=== PATIENT | male | born 1955 | race Caucasian/White ===

== ENCOUNTER 2018-07-19 11:34 | Emergency (ER) | payer OTHER, SELFPAY ==
[2018-07-19 11:49] VITALS: BP 141/87; PULSE 70; RESP 13; TEMP 36.5; O2SAT 97
--- NOTE | 2018-07-19 11:51 | DI.RAD.S_ITS ---
PROCEDURE: XR CHEST 1V INDICATIONS: chest pain TECHNIQUE: One view of the chest was acquired. COMPARISON: [facility], CR, XR CHEST 2VW, 04/24/2016, 11:02. [facility], CR, CHEST 1 VIEW, 02/06/2016, 13:40. FINDINGS: Surgical changes and devices: None. Lungs and pleura: No pleural effusions or pneumothorax. Nodular opacities are present within the bases bilaterally not well-seen on prior exams. Mediastinum: Mediastinal contours appear normal. Heart size is normal. Bones and chest wall: No suspicious bony lesions. Overlying soft tissues appear unremarkable. IMPRESSION: No acute pulmonary process. Bibasilar nodular opacities as above. These are suspected to represent nipple shadows. Recommend followup imaging with nipple markers for further definitive evaluation. Dictated by: Cynthia Clark M.D. on 07/19/2018 at 11:27 Approved by: Cynthia Clark M.D. on 07/19/2018 at 11:28
--- NOTE | 2018-07-19 11:58 | ED_ITS ---
HPI - Chest Pain General Chief Complaint: Chest Pain Stated Complaint: CHEST PAIN PAST COUPLE OF WEEKS Time Seen by Provider: 07/19/18 11:50 Source: patient Mode of arrival: ambulatory Limitations: no limitations History of Present Illness HPI narrative: Patient is a 63-year-old male who presents with chest pain. It has been a dull ache ongoing for a number week it comes and goes irregular times. Last night he felt it when he woke up unsure if it woke him or if he noticed it once he was awake. It does not radiate it lasts for about 10 min to an hour. He denies shortness of breath diaphoresis nausea. Brother had an [place] in his 40s but was overweight and a poorly. MD complaint: chest pain Related Data Home Medications Medication Instructions Recorded Confirmed No Known Home Medications 07/19/18 07/19/18 Allergies Allergy/AdvReac Type Severity Reaction Status Date / Time No Known Drug Allergies Allergy Verified 07/19/18 11:58 Review of Systems Review of Systems GENERAL: Denies chills, fatigue, malaise, fever, sweats, travel HEENT: Denies sinus pain, ear pain, sore throat, difficulty swallowing, neck pain RESPIRATORY: Denies dyspnea, cough, wheezing, hemoptysis, sputum. CARDIOVASCULAR: See HPI GASTROINTESTINAL: Denies nausea, vomiting, abdominal pain, diarrhea, constipation, melena. : Denies dysuria, frequency, incontinence, hematuria, urinary retention, flank pain. MUSCULOSKELETAL: Denies weakness, joint pain, or bony pain SKIN: No rash, no erythema, no pruritus NEUROLOGIC: Denies weakness, dizziness, headache, numbness, change in speech, confusion PSYCHIATRIC: No concerning psychosocial issues. 12 point review of systems is negative except for those stated above and HPI [facility] Medical History High cholesterol (Acute) Exam Initial Vital Signs Initial Vital Signs: Vital Signs Temperature 97.7 F 07/19/18 11:49 Pulse Rate 70 07/19/18 11:49 Respiratory Rate 13 07/19/18 11:49 Blood Pressure 141/87 H 07/19/18 11:49 Pulse Oximetry 97 07/19/18 11:49 GENERAL: Well-appearing, well-nourished and in no acute distress. HEENT: Head atraumatic,EOMI, pupils reactive, face symmetric, CARDIOVASCULAR: Regular rate and rhythm without murmurs, rubs or gallops. RESPIRATORY: Breath sounds equal bilaterally, no wheezes rales or rhonchi. ABDOMEN: Soft, nontender. Normoactive bowel sounds all 4 quadrants. No guarding or rebound. EXTREMITIES: Normal range of motion, no clubbing or edema. Neurovascularly intact NEUROLOGICAL: Alert and oriented x4.Normal gait and speech. Cranial nerves II through XII grossly intact. SKIN: Warm, dry, no laceration, no petechiae, no rashes or lesions. Scores HEART Score Heart Score history: Moderately Suspicious Heart Score EKG: Normal Heart Score Age: 45-64 years old Heart Score risk factors: 1-2 risk factors Heart Score troponin: < or = to normal limit Heart Score Total: 3 Course Orders Ordered: ED Orders 07/19/18 11:51 XR chest 1V Stat EKG-12 Lead Stat 07/19/18 11:56 Complete Blood Count AUTO DIFF Stat Comprehensive Metabolic Panel Stat Lipase Stat Partial Thromboplastin Time Stat Prothrombin Time INR Stat Troponin & CK Cardiac Panel Stat Discontinued Medications Aspirin (Aspirin Chew) 324 mg PO NOW ONE Stop: 07/19/18 11:52 Last Admin: 07/19/18 11:59 Dose: 324 mg Vital Signs - 8 hr 07/19/18 11:49 07/19/18 12:01 07/19/18 12:26 Temperature 97.7 F Pulse Rate 70 64 55 L Respiratory Rate 13 14 Blood Pressure 141/87 H Blood Pressure [Right Arm] 138/79 136/79 Pulse Oximetry 97 98 97 07/19/18 13:07 07/19/18 13:57 Temperature Pulse Rate 69 55 L Respiratory Rate 14 Blood Pressure Blood Pressure [Right Arm] 165/92 H 120/70 Pulse Oximetry 100 98 MDM - Chest Pain Lab Data Attestation: I reviewed the patient's lab results. Result diagrams: 07/19/18 11:56 07/19/18 11:56 Lab Results 07/19/18 07/19/18 07/19/18 Range/Units 11:56 11:56 11:56 WBC 4.6 (4.5-11.0) X10^3/uL RBC 5.06 (4.5-5.9) X10^6/uL Hgb 16.1 (13.5-17.5) g/dL Hct 45.9 (41-53) % MCV 90.8 (80-100) fL MCH 31.8 (26-34) PG MCHC 35.1 (30-36) % RDW 13.6 (11.6-14.8) % Plt Count 211 (150-400) X10^3/uL Neut % (Auto) 61.4 (50-75) % Lymph % (Auto) 22.3 L (25-40) % [place] % (Auto) 11.4 (3-14) % Eos % (Auto) 4.0 (2-4) % Baso % (Auto) 0.9 (0-2) % Neut # (Auto) 2800 L (4278-9240) /uL PT 10.9 (10.1-12.7) SECONDS INR 1.0 (0.9-1.3) APTT 36 (26.4-36.2) SECONDS Sodium 142 (137-145) mmol/L Potassium 4.4 (3.4-5.1) mmol/L Chloride 107 (98-107) mmol/L Carbon Dioxide 24 (22-32) mmol/L BUN 15 (9-20) mg/dL Creatinine 0.90 (0.66-1.25) mg/dL Estimated GFR > 60.0 (>60) mL/min BUN/Creatinine Ratio 16.7 (6-22) Glucose 104 (80-110) mg/dL Calcium 9.4 (8.4-10.2) mg/dL Total Bilirubin 0.7 (0.2-1.3) mg/dL AST 29 (17-59) IU/L ALT 40 (21-72) IU/L Alkaline Phosphatase 69 (38-126) U/L Total Creatine Kinase 79 (55-170) U/L Troponin I < 0.012 (0.01-0.034) ng/mL Total Protein 7.2 (6.3-8.2) g/dL Albumin 4.4 (3.5-5.0) g/dL Globulin 2.8 (1.7-4.1) g/dL Albumin/Globulin Ratio 1.6 (1.0-2.8) Lipase 118 (23-300) U/L Imaging Data Chest x-ray: Radiologist's impression: PROCEDURE: XR CHEST 1V INDICATIONS: chest pain TECHNIQUE: One view of the chest was acquired. COMPARISON[facility], , XR CHEST 2VW, 04/24/2016, 11:02. [facility], CR, CHEST 1 VIEW, 02/06/2016, 13:40. FINDINGS: Surgical changes and devices: None. Lungs and pleura: No pleural effusions or pneumothorax. Nodular opacities are present within the bases bilaterally not well-seen on prior exams. Mediastinum: Mediastinal contours appear normal. Heart size is normal. Bones and chest wall: No suspicious bony lesions. Overlying soft tissues appear unremarkable. IMPRESSION: No acute pulmonary process. Bibasilar nodular opacities as above. These are suspected to represent nipple shadows. Recommend followup imaging with nipple markers for further definitive evaluation. Dictated by: Cynthia Clark M.D. on 07/19/2018 at 11:27 ECG Data Attestation: I personally reviewed and interpreted this ECG as follows: Prior ECG tracings: not available for review Interpretation: Normal sinus rhythm rate [address] changes some T-wave inversion noted in lead [address] elevation MDM Narrative Medical decision making narrative: Patient remains chest pain-free in the ED. Discussed he may require further cardiac evaluation and he should discuss this with his primary. Warning signs and all questions have been addressed. Discharge Plan Departure Patient Disposition: Home Clinical Impression: Atypical chest pain Discharge Date/Time: 07/19/18 13:58 Interventions: ED Discharge Assessment Last Done: 07/19/18 13:58 Instructions: DI for Atypical Chest Pain Activity Restrictions/Additional Instructions: *You have been diagnosed with atypical chest pain *What to do: May require further outpatient cardiac testing discussed this with her primary care provider *Continue to take medications as directed *Follow up with your primary care provider in 2-3 days *Return to ER if you should have worsening or changing chest pain, shortness of breath, heart palpitation or any new, worsening or concerning symptoms Prescriptions: No Action No Known Home Medications RF: 0 Referrals: Glenn Lewis DO [Non-Staff] -
[2018-07-19] MEDS: ASPIRIN 81 MG TAB 324 MG PO (11:59)
[2018-07-19 12:01] VITALS: BP 138/79; PULSE 64; RESP 14; O2SAT 98
[2018-07-19 12:02] LABS: Add Manual Diff / Slide Review NO; Basophils Percent Auto 0.9 % (0-2); Hematocrit 45.9 % (41-53); Hemoglobin 16.1 g/dL (13.5-17.5); Lymphocytes Percent Auto 22.3 % (25-40); Mean Corpuscular HGB Conc 35.1 % (30-36); Mean Corpuscular Hemoglobin 31.8 PG (26-34); Mean Corpuscular Volume 90.8 fL (80-100); Monocytes Percent Auto 11.4 % (3-14); Neutrophils Absolute Auto 2800 /uL (3000-5900); Neutrophils Percent Auto 61.4 % (50-75); Platelet Count 211 X10^3/uL (150-400); Red Blood Cell Count 5.06 X10^6/uL (4.5-5.9); Red Cell Distribution Width 13.6 % (11.6-14.8); White Blood Cell Count 4.6 X10^3/uL (4.5-11.0)
--- NOTE | 2018-07-19 12:04 | PC.NURSE ---
chest pain that woke pt from sleep. On and off x 2 weeks. Describes as feeling as if chest is 'bruised'. Denies n/v/diaphorisis/ sob/ exertional pain. Happens at rest or w/ exertion. Denies reproduction w/ movement or breathing. No travel. [place] / warm and dry. No acute distress. + h/o high cholesterol but does not take medications for it. Currently has no PCP.
[2018-07-19 12:15] LABS: Alanine Aminotransferase 40 IU/L (21-72); Albumin 4.4 g/dL (3.5-5.0); Albumin Globulin Ratio 1.6 (1.0-2.8); Alkaline Phosphatase 69 U/L (38-126); Aspartate Aminotransferase 29 IU/L (17-59); BUN Creatinine Ratio 16.7 (6-22); Bilirubin Total 0.7 mg/dL (0.2-1.3); Blood Urea Nitrogen 15 mg/dL (9-20); Calcium 9.4 mg/dL (8.4-10.2); Carbon Dioxide 24 mmol/L (22-32); Chloride 107 mmol/L (98-107); Creatine Kinase 79 U/L (55-170); Estimated Glomerular Filt Rate > 60.0 mL/min (>60); Globulin 2.8 g/dL (1.7-4.1); Glucose 104 mg/dL (80-110); HEMOLYSIS 25 (0-50); Lipase 118 U/L (23-300); Potassium 4.4 mmol/L (3.4-5.1); Sodium 142 mmol/L (137-145); Total Protein 7.2 g/dL (6.3-8.2)
[2018-07-19 12:16] LABS: Prothrombin Time 10.9 SECONDS (10.1-12.7)
[2018-07-19 12:19] LABS: PTT Partial Thromboplastin Tim 36 SECONDS (26.4-36.2)
[2018-07-19 12:26] VITALS: BP 136/79; PULSE 55; O2SAT 97
[2018-07-19 12:29] LABS: Troponin I < 0.012 ng/mL (0.01-0.034)
[2018-07-19 13:07] VITALS: BP 165/92; PULSE 69; O2SAT 100
[2018-07-19 13:57] VITALS: BP 120/70; PULSE 55; RESP 14; O2SAT 98
== END 2018-07-19 13:58 | disposition home or self-care (01) ==
PROVIDERS: Emergency Provider Emergency Medicine
DX: R07.89 Other chest pain (principal)
CPT/HCPCS: 36591; 71045; 80053; 82550; 82553; 83690; 84484; 85025; 85610; 85730; 93005; 93010; 93041; 99284; 99285

== ENCOUNTER → 2020-05-09 10:36 | Outpatient (CLI) | payer MEDICARE, SELFPAY ==
[2020-05-09 11:06] LABS: Add Manual Diff / Slide Review NO; Basophils Absolute Auto 0 /uL (0-100); Eosinophils Absolute Auto 300 /uL (0-450); Eosinophils Percent Auto 9.3 % (2-4); Hematocrit 45.6 % (41-53); Hemoglobin 15.9 g/dL (13.5-17.5); Lymphocytes Absolute Auto 800 /uL (1100-4500); Lymphocytes Percent Auto 23.2 % (25-40); Mean Corpuscular HGB Conc 34.9 % (30-36); Mean Corpuscular Hemoglobin 32.4 PG (26-34); Mean Corpuscular Volume 92.9 fL (80-100); Monocytes Absolute Auto 300 /uL (0-900); Monocytes Percent Auto 9.2 % (3-14); Neutrophils Absolute Auto 2100 /uL (1500-7000); Neutrophils Percent Auto 57.3 % (50-75); Platelet Count 192 X10^3/uL (150-400); Red Blood Cell Count 4.91 X10^6/uL (4.5-5.9); Red Cell Distribution Width 13.6 % (11.6-14.8); White Blood Cell Count 3.6 X10^3/uL (4.5-11.0)
[2020-05-09 11:19] LABS: Alanine Aminotransferase 17 IU/L (<50); Albumin 4.5 g/dL (3.5-5.0); Albumin Globulin Ratio 1.6 (1.0-2.8); Alkaline Phosphatase 90 U/L (38-126); Aspartate Aminotransferase 21 IU/L (17-59); BUN Creatinine Ratio 17.1 (6-22); Bilirubin Total 0.9 mg/dL (0.2-1.3); Blood Urea Nitrogen 13 mg/dL (9-20); Calcium 9.8 mg/dL (8.4-10.2); Carbon Dioxide 27 mmol/L (22-32); Chloride 103 mmol/L (98-107); Estimated Glomerular Filt Rate > 60.0 mL/min (>60); Globulin 2.8 g/dL (1.7-4.1); Glucose 104 mg/dL (80-110); HEMOLYSIS < 15 (0-50); Potassium 4.5 mmol/L (3.4-5.1); Sodium 137 mmol/L (137-145); Total Protein 7.3 g/dL (6.3-8.2)
== END ==
PROVIDERS: PCP Family Medicine; Referring Provider Internal Medicine; Visit Provider Internal Medicine
DX: C02.9 Malignant neoplasm of tongue, unspecified (principal)
CPT/HCPCS: 36415; 80053; 85025

== ENCOUNTER → 2020-05-14 08:30 | Oncology outpatient (ONC) | payer MEDICARE, OTHER, SELFPAY ==
[2020-05-08 09:52] VITALS: BP 124/61; PULSE 64; RESP 18; TEMP 36.8; O2SAT 98
--- NOTE | 2020-05-08 12:44 | ONC.CONS ---
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 He originally noted some dysphagia in weakness of his tongue in the summer of 2018. He eventually had an MRI of the brain done on February 03, 2020 that showed a mass in the base of the tongue on the left side. On February 11 a biopsy was done that showed a poorly differentiated carcinoma that was P 16 equivocal (50%). A PET scan on February 15 showed multiple bilateral lymph nodes, left greater than right. A primary tumor was apparent at the left base of tongue and was also a 5 mm indeterminate lung nodule. PET scan was otherwise negative. On February 18 he saw Medical Oncology at the [facility] [place] and was counseled about cis-angoon 100 milligrams/meter sq day 1, 22, and 43 of a cycle of radiation therapy, standard chemo radiotherapy. He since has been receiving treatments from a naturopathic oncologist in [place]. He reports getting IV vitamin-C, multiple supplements, mistletoe injections in dietary adjustments. He has since come back to [place] and presents today to establish local medical oncology care. Today he reports a fullness and swelling on the left side of his tongue for the last month or so. He continues to have trouble swallowing but is much better than it was. He had recalls having a barium swallow but he has not had a speech pathology referral or swallowing exercises that he recur he does not think the lymph nodes in his neck of changed appreciably. He is not having any particular problems with pain. He denies any bleeding, localized weakness, fever, chills, nausea, vomiting, shortness of breath. All other systems are negative. Past medical history 1. He has worked in the [employer]. He is accompanied by his who is very supportive. He tries to get out and about but does not go for a lot of walks. He generally eats a good diet. He is not a smoker or drinker. 2. His father had sinus cancer and was a heavy smoker. Family history is otherwise negative 3. 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 He denies high blood pressure, diabetes, rheumatic fever, tuberculosis, heart attacks, strokes, stomach ulcers, pneumonia or any other kind of cancer 5. No known drug allergies 6. He is not currently on any prescription medications 7. He had a colonoscopy in 2016 8. Hyperlipidemia CC: Harshal Guajardo MD Home Medications and Allergies Home Medications Medication Instructions Recorded Confirmed Type No Known Home Medications 07/19/18 05/08/20 History Allergies Allergy/AdvReac Type Severity Reaction Status Date / Time No Known Drug Allergies Allergy Verified 04/26/20 16:20 Medical History - Medical, Surgical, Family History Medical History: Medical History (Last Updated 04/26/20 @ 16:43 by Jaquan Wheeler DO) High cholesterol Primary tongue squamous cell carcinoma - Social History Smoking Status: Former smoker Review of Systems - Patient Self-Reported Symptoms SR ears, nose, mouth, throat issues: Difficulty swallowing, Swollen glands Exam Vital signs: Vital Signs Temp Pulse Resp BP Pulse Ox 05/08/20 09:52 98.2 F 64 18 124/61 98 Intake and Output 05/07/20 05/08/20 05/08/20 23:59 07:59 15:59 Other: Weight 81.8 kg Patient Weight 05/08/20 23:59 Weight 81.8 kg Narrative: He was awake, alert and oriented x3. He was in no acute distress. There were multiple approximately 1 cm left-sided cervical lymph nodes and approximately 3 cm fullness a below the angle of the jaw on the left. There were no obviously enlarged lymph nodes on the right. There was fullness at the base of the tongue on the left side. There were no visible intraoral ulcerations. Lungs were clear without wheezes or rales. Heart showed a regular rate and rhythm without murmur, gallop or rub. Abdomen was soft and nontender without any palpable enlargement of the liver or spleen. Assessment and Plan (1) Primary tongue squamous cell carcinoma Status: Acute Mr. Garcia has persistent lymphadenopathy and fullness of the base of the tongue. Some of his symptoms have improved. It has been about 3 months since he has since he has had any radiographic assessment of his cancer. Particularly in light of the fact that there was a 5 mm lung nodule on his initial staging PET scan, restaging his cancer status at this time would be appropriate. Will get him set up for a PET scan and he will return afterwards for review of results. Will also get a CBC and comprehensive metabolic panel done today. New In anticipation of the possible need for systemic therapy, we I will also requested testing of his February 11 biopsy in [place] for PDL1 and mismatch repair protein expression. These tests could be helpful in selection of a systemic therapy program. We also discussed the option of referral to speech pathology for swallowing exercises and swallowing evaluation. It does not did not feel like he want to pursue that at the present time. He will return after his labs and PET scan. His pathology amendments should be available at that time, and further plans will be made when these results are available for review. Impression 1. Squamous cell carcinoma of the base of the tongue diagnosed in February 2020 with lymph node involvement 2. 5 mm indeterminate lung nodule at initial presentation 3. Patient has been pursuing national account manager at care Plan 1. CBC and metabolic panel 2. Re-stage with PET scan 3. PDL1 and mismatch repair protein expression will be requested on his February 2020 biopsy 4. Return afterwards for review results of formulation of additional plans at that time. - Time Spent with Patient I personally spent 34 minutes in today's [id number] visit with greater than 50% of the time spent in counseling regarding the issues outlined above.
--- NOTE | 2020-05-14 09:09 | P.PNONC_ITS ---
PN -Subjective Interval history: Andrea Garcia is a 65 year old male who is referred for squamous cell carcinoma of the base of the tongue. He originally noted some dysphagia in weakness of his tongue in the summer of 2018. He eventually had an MRI of the brain done on February 03, 2020 that showed a mass in the base of the tongue on the left side. On February 11 a biopsy was done that showed a poorly differentiated carcinoma that was P 16 equivocal (50%). A PET scan on February 15 showed multiple bilateral lymph nodes, left greater than right. A primary tumor was apparent at the left base of tongue and was also a 5 mm indeterminate lung nodule. PET scan was otherwise negative. On February 18 he saw Medical Oncology at the [facility] and was counseled about cis-chitina 100 milligrams/meter sq day 1, 22, and 43 of a cycle of radiation therapy, standard chemo radiotherapy. He since has been receiving treatments from a naturopathic oncologist in [place]. He reports getting IV vitamin-C, multiple supplements, mistletoe injections in dietary adjustments. He has since come back to [place] and presents today to establish local medical oncology care. Today he reports a fullness and swelling on the left side of his tongue for the last month or so. He continues to have trouble swallowing but is much better than it was. He had recalls having a barium swallow but he has not had a speech pathology referral or swallowing exercises that he recur he does not think the lymph nodes in his neck of changed appreciably. He is not having any particular problems with pain. When he was here last week he was evaluated and found to have palpable lymphadenopathy and some swelling of the left side of his tongue, particularly posteriorly. He was set up for a PET scan. I personally requested PDL1 testing on [facility] biopsy [facility]. He comes today for follow-up of results. He denies any bleeding, localized weakness, fever, chills, nausea, vomiting, shortness of breath. All other systems are negative. He still bothered by his tongue swelling and which makes it difficult to speak. Past medical history 1. He has worked in the [employer] business. He is accompanied by his who is very supportive. He tries to get out and about but does not go for a lot of walks. He generally eats a good diet. He is not a smoker or drinker. 2. His father had sinus cancer and was a heavy smoker. Family history is otherwise negative 3. 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 He denies high blood pressure, diabetes, rheumatic fever, tuberculosis, heart attacks, strokes, stomach ulcers, pneumonia or any other kind of cancer 5. No known drug allergies 6. He is not currently on any prescription medications 7. He had a colonoscopy in 2016 8. Hyperlipidemia - Patient Self-Reported Symptoms SR ears, nose, mouth, throat issues: Difficulty swallowing, Swollen glands Home Medications and Allergies Home Medications Medication Instructions Recorded Confirmed Type No Known Home Medications 07/19/18 05/08/20 History Allergies Allergy/AdvReac Type Severity Reaction Status Date / Time No Known Drug Allergies Allergy Verified 04/26/20 16:20 Exam Narrative: He was awake, alert and oriented x3. He was in no acute distress. Assessment and Plan (1) Primary tongue squamous cell carcinoma Status: Acute His PET scan shows persistent local regional disease with lymphadenopathy bilaterally as well as at his primary site. However, there is no evidence of metastatic disease. The disc from his previous PET scan in February is EN route. His PDL1 assay is not back yet. Will follow-up on both of these to make sure that they arrive and are entered in the chart. We discussed the fact that in the absence of metastases, treatment would typically be initiated with curative intent. Although we can treat him with immunotherapy regardless of the PD L1 result, as a single agent it does not have well-established curative potential in this setting. The combination of chemoth erapy and radiation would remain standard of care. I explained that it is a difficult treatment that would have the potential to cure the disease. We discussed the fact that he could get another opinion regarding this at the [facility]. He has relatives in [place] where he could stay for free and is also interested in another opinion at [facility]. I strongly encouraged him to pursue a tertiary care referral. We discussed his general good health, the fact that this is the most important decision he is likely to make in his entire life, and that the PET scan suggests that he is still in the window of potential cure with chemo radiotherapy. He understood the rationale for this recommendation and will pursue that. He will let us know if he wants us to make a referral or do anything else to facilitate this process. We also discussed clinical trials in general. If he were to enroll in a trial, he would need to have the therapy related to the trial at the managing institution. We also discussed the fact that if he were living here in [place] and is anything that we could do to facilitate his care or save him a trip to a tertiary care site, we would be more than happy to do that. He had his had multiple questions that were answered in detail. I personally spent 26 minutes in today's [id number] visit with greater than 50% of the time spent in counseling regarding the issues outlined above. Impression 1. Squamous cell carcinoma of the base of the tongue diagnosed in February 2020 with lymph node involvement 2. 5 mm indeterminate lung nodule at initial presentation 3. Continued local regional disease on recent PET scan done here but no evidence of distant metastases. 4. PDL1 assay is still pending Plan 1. Patient was counseled that based on the PET scan showing no evidence of metastases that he still in the window to be potentially cured of his cancer with chemo radiotherapy 2. We reviewed the fact that we could treat with immunotherapy regardless of the PD L1 assay but that this does not have an established track record of curative potential in this setting 3. He was strongly encouraged to pursue a tertiary care referral either at the [facility] if he wishes to stay close to home, or at [facility] where he has family and a good infrastructure support. 4. We would be happy to see him back here at any time or participate in his care in any way that would be helpful in the future. - Time Spent with Patient 26 minutes was personally spent in today's [id number] visit with greater than 50% of the time spent in counseling regarding the issues outlined above
== END ==
PROVIDERS: Referring Provider Family Medicine; Visit Provider Internal Medicine
DX: C01 Malignant neoplasm of base of tongue (principal); R91.1 Solitary pulmonary nodule
CPT/HCPCS: 99203; 99213; 99214